=== PATIENT | male | born 1960 | race Caucasian/White ===

== ENCOUNTER 2024-11-08 06:10 | Emergency (ER) | payer OTHER ==
[~2024-11-08] VITALS: Ht 175.3 cm; Wt 102.1 kg
--- NOTE | 2024-11-08 06:44 | ERN ---
General Chief Complaint: Neck Pain Stated Complaint: NECK PAIN Time Seen by MD: 06:15 Source: patient History of Present Illness Initial Comments Patient is a 64-year-old male with known this disease in his neck. He states that he has already had C6-7 fusion and that he needs additional surgeries on his neck. He woke up this morning in excruciating neck pain worse than it has ever been before. He is sitting up ramrod straight in the bed afraid to move his neck because of the pain. He is complaining of bilateral arm pain as well. Allergies: Coded Allergies: Penicillins (Unverified Allergy, Unknown, 11/08/24) ketorolac (Unverified Allergy, Unknown, 11/08/24) tramadol (Unverified Allergy, Unknown, 11/08/24) Past Medical History Past Medical History: CHF, COPD, Diabetes-Type II Past Surgical History: None Surgical History Other: neck fusuion c6-c7. Constitutional: (-) chills, (-) diaphoresis, (-) fever, (-) malaise, (-) weakness, (-) other documentation EENTM: (-) eye pain, (-) blurred vision, (-) tearing, (-) double vision, (-) ear pain, (-) ear discharge, (-) nose pain, (-) nose congestion, (-) throat pain, (-) Throat swelling, (-) mouth pain, (-) tooth pain, (-) mouth swelling, (-) other documentation Respiratory: (-) cough, (-) orthopnea, (-) short of breath, (-) stridor, (-) wheezing, (-) other documentation Cardiovascular: (-) chest pain, (-) edema, (-) palpitations, (-) syncope, (-) dyspnea on exertion, (-) other documentation Gastrointestinal/Abdominal: (-) nausea, (-) vomiting, (-) diarrhea, (-) abdominal pain, (-) abdominal distention, (-) constipation, (-) rectal bleeding, (-) dark stool/melena, (-) other documentation Musculoskeletal: (+) Neck pain, (+) muscle stiffness Skin: (-) laceration, (-) contusion, (-) abrasion, (-) abscess, (-) rash, (-) change in color, (-) change in hair, (-) change in nails, (-) diaphoresis, (-) dryness, (-) other documentation Neuro: (-) altered mental status, (-) headache, (-) syncope, (-) paralysis, (-) numbness, (-) seizure, (-) pre-existing deficit, (-) tremors, (-) weakness, (-) dizziness, (-) slurred speech, (-) vertigo, (-) other documentation Physical Exam General Appearance: (+) moderate distress Orientation: (+) oriented x 3 Head/Face Trauma: No Eye: bilateral eye normal inspection, bilateral eye PERRL, bilateral eye EOMI Ear, Nose, Throat: (+) hearing grossly normal, (+) normal ENT inspection, (+) moist mucous membraine Neck: (+) normal inspection Neck Comment Patient is holding his neck straight up and unwilling to bend it at all. He has minimal C-spine tenderness but he has a extreme paraspinal muscle tenderness. Respiratory: (+) chest non-tender, (+) lungs clear, (+) well ventilated Results Laboratory and Microbiology Labs Reviewed?: Yes EKG/XRAY/US/CT/MRI X-RAY Comment [place] [id number] [address] IMAGING REPORT Signed PATIENT: GURU NIX MR#: [id number] : 1960 SEX: M AGE: 64 LOCATION: ED ORDER 0 STATUS: REG ER REPORT#: [id number] SERVICE [id number] REASON: neckpain ORDERING PHYSICIAN: DALILA OLIVARES MD PROCEDURE: CERV 2 3VW - CERV SPINE 2-3VWS Exam Type: CERV SPINE 2-3VWS Clinical Information: neckpain Comparison: None FINDINGS: C1 through the top of T1 are seen on the lateral view. The prevertebral soft tissues are normal. No fractures or dislocations are seen. There are spondylytic changes and there are degenerative changes of the facet joints. Status post anterior fusion C5-6 with adequate alignment. The other disc spaces are intact. There is adequate alignment. IMPRESSION: Degenerative changes as noted. DICTATED BY: BOB CADET MD DATE: 11/08/24909 ELECTRONICALLY SIGNED BY: BOB CADET MD DATE: 11/08/24912 [facility] For starters I will give the patient some pain medicine and some muscle relaxants and also a soft C-collar. I need the patient's pain to be better controlled before I can even begin to do any imaging or a meaningful exam. PATIENT STATES HE HAS BEEN HAVING NECK PAIN FOR SOME TIME. X-RAY DID NOT DISCLOSE ACUTE FINDINGS. PATIENT WILL BE DISCHARGED IN STABLE CONDITION I DID ADVISED HIM APPROPRIATE FOLLOW UP WITH WITH PCP AND/OR ORTHOPEDIC AND NEUROSURGEON. PATIENT IS PENDING SURGERY MOMENT OF DISCHARGE PATIENT DOES NOT REPORT NEUROPATHY OR ANY OTHER NERVE DAMAGE. ED Course Orders Procedure Category Date Status Time Cyclobenzaprine Hcl PHA 11/08/24 Complete (Cyclobenzaprine Hcl 07:00 Hydromorphone 2mg PHA 11/08/24 Complete Vial (Dilaudid 2mg Inj 07:00 *Nursing CPOE 11/08/24 Transmitted Communication: 06:46 Orphenadrine Citrate PHA 11/08/24 Complete (Norflex) 07:30 Triamcinolone Acet PHA 11/08/24 Complete 40mg/Ml 1ml (Kenalog 07:30 Cerv Spine 2-3vws RAD 11/08/24 Resulted 07:50 Current Medications Medications (Trade) Dose Ordered Sig/Ramez Route PRN Reason Start Time Stop Time Status Last Admin Dose Admin Cyclobenzaprine HCl (Cyclobenzaprine HCl) 10 mg ONCE ONCE PO 11/08/24 07:00 11/08/24 07:15 DC Hydromorphone HCl (DiLAUDid 2MG INJ) 2 mg ONCE ONCE IVP 11/08/24 07:00 11/08/24 07:15 DC Orphenadrine Citrate (Norflex) 60 mg ONCE ONCE IM 11/08/24 07:30 11/08/24 07:31 DC 11/08/24 07:25 Triamcinolone Acetonide (Kenalog 40) 40 mg ONCE ONCE IM 11/08/24 07:30 11/08/24 07:31 DC 11/08/24 07:25 Vital Signs Date Time Temp Pulse Resp B/P (MAP) Pulse Ox O2 Delivery O2 Flow Rate FiO2 11/08/24 07:34 97.5 84 22 116/68 98 Room Air* 0 21 11/08/24 06:15 98.1 87 16 157/79 99 Room Air 0 DX & DISP Disposition: Discharge Departure Impression: Primary Impression: Chronic neck pain Condition: Stable Scripts Methocarbamol (Robaxin) 750 Mg Tab 1 TAB PO BID for 5 Days, #10 TAB 0 Refills Prov: DALILA OLIVARES MD 11/08/24 Additional Instructions: FOLLOW-UP WITH PRIMARY CARE PROVIDER IN 1 TO 2 DAYS. TAKE MEDICATIONS DIRECTED HERE IN THE EMERGENCY ROOM. OKAY TO CONTINUE HOME MEDICATIONS UNLESS OTHERWISE DISCUSSED DURING YOUR VISIT IN THE EMERGENCY ROOM TODAY. RETURN TO YOUR NEAREST EMERGENCY ROOM IF SYMPTOMS WORSEN OR IF THERE IS NO IMPROVEMENT. CALL 911 IF YOU NEED IMMEDIATE ASSISTANCE. TAKE TYLENOL [id number] NEEDED AND IF NO CONTRAINDICATIONS ARE PRESENT. INCREASE ORAL HYDRATION. A WOUND CULTURE OR URINE CULTURE WAS ORDERED HERE IN THE EMERGENCY ROOM DEPARTMENT PLEASE FOLLOW-UP WITH PRIMARY CARE PROVIDER AND ADVISE THEM TO GET REPEAT PORTS FROM OUR FACILITY. IF YOU HAD ANY LEENA WRAP/SPLINTS THAT WERE APPLIED HERE, PLEASE DO NOT REMOVE THEM UNTIL YOU SEE YOUR PRIMARY CARE OR SPECIALTY. REFERRALS: Referrals: SELF,REFERRAL (PCP) LESLEE CARTAGENA MD Time of Disposition: 09:46 DAGOBERTO QUIÑONES MD November 08, 2024 06:44 DALILA OLIVARES MD November 08, 2024 09:48
[2024-11-08] MEDS ORDERED: hydroMORPHone 2 MG VIAL (2MG/ML) IVP ONE (07:00)
[2024-11-08] MEDS ORDERED: CYCLOBENZAPRINE HCL 10 MG TABLET PO ONE (07:00)
--- NOTE | 2024-11-08 07:08 | NUR ---
SOFT COLLAR PLACED.
[2024-11-08] MEDS: ORPHENADRINE 60MG/2ML IM ONE (07:25)
[2024-11-08] MEDS: TRIAMCINOLONE ACETONIDE 40 MG/ML 1ML VIAL IM ONE (07:25)
--- NOTE | 2024-11-08 09:13 | HMCIMG ---
Exam Type: CERV SPINE 2-3VWS Clinical Information: neckpain Comparison: None FINDINGS: C1 through the top of T1 are seen on the lateral view. The prevertebral soft tissues are normal. No fractures or dislocations are seen. There are spondylytic changes and there are degenerative changes of the facet joints. Status post anterior fusion C5-6 with adequate alignment. The other disc spaces are intact. There is adequate alignment. IMPRESSION: Degenerative changes as noted.
[2024-11-08] MEDS ORDERED: METH-662 PO (09:47)
[2024-11-08 09:54] VITALS: BP 119/73; PULSE 88; RESP 18; TEMP 98; O2SAT 95
--- NOTE | 2024-11-08 10:05 | NUR ---
PT AMBULATING WITHOUT ASSISTANCE, SOFT COLLAR IN PLACE, NAD.
== END 2024-11-08 10:06 | disposition home or self-care (01) ==
LOC: EDH 06:10
DX: G89.29 Other chronic pain (principal); M54.2 Cervicalgia; E11.9 Type 2 diabetes mellitus without complications; I50.9 Heart failure, unspecified; J44.9 Chronic obstructive pulmonary disease, unspecified; Z88.0 Allergy status to penicillin; Z88.5 Allergy status to narcotic agent
CPT/HCPCS: 99284; 72040; 96372 ×2; J3301; J2360

== ENCOUNTER 2024-12-25 03:53 | Emergency (ER) | payer OTHER ==
[~2024-12-25] VITALS: Ht 177.8 cm; Wt 99.8 kg
[~2024-12-25 03:53] MED LIST: ADV250 IH; AEC81 PO; ATOR40TA69 PO; AZIT500T4 PO; EMPA10TA PO; FURO40TA5 PO; GABA-1555 PO; GUAI600T50 PO; LOSA-417 PO; NITR0.4T50 SL; NYST15PO13 TP; TICA90TA PO
[2024-12-25 03:54] VITALS: BP 106/60; PULSE 99; RESP 18
[2024-12-25] MEDS ORDERED: ketOROlac 15MG/ML VIAL (15MG/ML) IV ONE (04:00)
[2024-12-25] MEDS: LACTATED RINGERS 1000ML 1,000 ML IV ONE (05:09)
[2024-12-25] MEDS: morPHINE 4 MG SYG IVP ONE (05:09)
[2024-12-25 05:10] LABS: BASOPHILS # (AUTO) 0.03 K/uL (0.00-0.20); BASOPHILS % (AUTO) 0.5 % (0.0-5.0); EOSINOPHILS # (AUTO) 0.08 K/uL (0.00-0.70); EOSINOPHILS % (AUTO) 1.4 % (0.0-8.0); HEMATOCRIT 46.4 % (42-54); IMMATURE GRANULOCYTE ABSOLUTE 0.01 K/uL (0-1); LYMPHOCYTES # (AUTO) 1.3 K/uL (1.0-4.8); LYMPHOCYTES % (AUTO) 22.7 % (21.0-51.0); MEAN CORPUSCULAR HGB CONC 32.1 g/dL (32.0-36.0); MEAN CORPUSCULAR VOLUME 96.5 fL (79-99); MONOCYTES # (AUTO) 0.5 K/uL (0.1-1.0); MONOCYTES % (AUTO) 9.6 % (3.0-13.0); NEUTROPHILS # (AUTO) 3.7 K/uL (1.8-7.7); NEUTROPHILS % (AUTO) 65.6 % (40.0-77.0); PLATELET COUNT (AUTO) 218 K/uL (130-400); RED BLOOD CELL COUNT(AUTO) 4.81 MIL/uL (4.50-6.20); RED CELL DISTRIBUTION WIDTH 15.2 % (11.0-15.5); WHITE BLOOD COUNT (AUTO) 5.7 K/uL (4.8-10.8)
[2024-12-25 05:19] LABS: CARBON DIOXIDE 37 mmol/L (21-32); CHLORIDE 102 mmol/L (101-111); CREATININE 0.9 mg/dL (0.5-1.3); GLOMERULAR FILTR. RATE CALC 96 mL/min (>90); GLUCOSE,RANDOM 152 mg/dL (70-105); POTASSIUM 3.8 mmol/L (3.5-5.1); SODIUM SERUM 142 mmol/L (136-145); UREA NITROGEN, BLOOD 8 mg/dL (7-18)
[2024-12-25 05:26] LABS: ALCOHOL, BLOOD < 3 mg/dL (0-10); CREATINE KINASE, TOTAL 38 U/L (21-232)
[2024-12-25 06:05] LABS: ADD UA MICROSCOPIC NO
[2024-12-25 06:06] LABS: APPEARANCE,URINE CLEAR (CLEAR); BILIRUBIN,URINE NEGATIVE (NEGATIVE); COLOR,URINE LIGHT-YELLOW (YELLOW); GLUCOSE, URINE (UA) >=1000 mg/dL (NEGATIVE); KETONES,URINE NEGATIVE (NEGATIVE); NITRATE,URINE NEGATIVE (NEGATIVE); OCCULT BLOOD,URINE NEGATIVE (NEGATIVE); PH,URINE 5.5 (5.0-8.0); PROTEIN,URINE NEGATIVE (NEGATIVE); UROBILINOGEN,URINE 0.2 mg/dL (0.2-1.0)
[2024-12-25 06:07] LABS: LEUKOCYTE ESTERASE ,URINE NEGATIVE Leu/uL (NEGATIVE)
[2024-12-25] MEDS ORDERED: MELO-108 PO (06:52)
--- NOTE | 2024-12-25 06:53 | ERN ---
General Chief Complaint: Mechanical Fall Stated Complaint: FALL Time Seen by MD: 03:58 History of Present Illness Initial Comments 64-year-old male brought in by EMS for a fall. Patient reports he was getting up to use the restroom in the middle of the night, he felt dizzy, and he had a fall. He fell to his left side. He had his head on the wall. He complains of left shoulder pain left knee pain. He is ambulatory with stable vital signs per EMS. GCS 15. He does report taking Brilinta. Allergies: Coded Allergies: Penicillins (Unverified Allergy, Unknown, 11/08/24) ketorolac (Unverified Allergy, Unknown, 11/08/24) tramadol (Unverified Allergy, Unknown, 11/08/24) Home Meds Active Scripts Nystatin (Nystatin) 100,000 Unit/Gram Powder, 1 APPL TP BID for 7 Days, #60 GM 2 Refills apply to affected area(s) Prov:JASON LAURENT MD 11/21/24 Guaifenesin (Mucinex) 600 Mg Tablet.er, 1 TAB PO BID for cough for 10 Days, #20 TAB 1 Refill Prov:JASON LAURENT MD 11/21/24 Azithromycin (Azithromycin) 500 Mg Tablet, 1 TAB PO DAILY for 5 Days, #5 TAB 0 Refills Prov:JASON LAURENT MD 11/21/24 Fluticasone/Salmeterol (ADVAIR 250-50 DISKUS) 14 Inh/Disk Inh, 1 PUFF IH BID for 30 Days, #1 EACH 1 Refill Prov:JASON LAURENT MD 11/21/24 Nitroglycerin (Nitroglycerin) 0.4 Mg Tab.subl, 1 TAB SL AD for chest pain, #25 TAB 1 Refill 1st sign of attack; may repeat every 5 mins; if pain persists after 3 in 15 min, medical attention is recommended Prov:JASON LAURENT MD 11/21/24 Ticagrelor (Brilinta) 90 Mg Tablet, 90 MG PO BID for 30 Days, #30 TAB 1 Refill Prov:JASON LAURENT MD 11/21/24 Losartan Potassium (Cozaar) 25 Mg Tablet, 25 MG PO DAILY for 30 Days, #30 TAB 1 Refill Prov:JASON LAURENT MD 11/21/24 Atorvastatin Calcium (LIPITOR) 40 Mg Tablet, 40 MG PO HS for 30 Days, #30 TAB 1 Refill Prov:JASON LAURENT MD 11/21/24 Aspirin (ASPIRIN 81 MG ECTAB) 81 Mg Ectab, 81 MG PO DAILY for 30 Days, #30 TAB.EC 1 Refill Prov:JASON LAURENT MD 11/21/24 Reported Medications Empagliflozin (Jardiance) 10 Mg Tablet, 1 TAB PO DAILY for 30 Days, #30 TAB 0 Refills 11/19/24 Gabapentin (Gabapentin) 800 Mg Tablet, 1 TAB PO BID for 30 Days, #90 TAB 0 Ref ills 11/19/24 Atorvastatin Calcium (LIPITOR) 40 Mg Tablet, 1 TAB PO DAILY for 30 Days, #30 TAB 0 Refills 11/19/24 Furosemide (Furosemide) 40 Mg Tablet, 1 TAB PO BID for 30 Days, #30 TAB 0 Refills 11/19/24 Past Medical History Past Medical History: CHF, COPD, Diabetes-Type II Past Surgical History: None Surgical History Other: neck fusuion c6-c7. ROS Dictation CONSTITUTIONAL: No chills, no fever, no weakness, no diaphoresis, no malaise. HEAD/FACE: No signs of trauma. EENT: No eye pain, no blurred vision, no tearing, no double vision, no ear pain, no ear discharge, no nose pain, no nasal congestion, no throat pain, no throat swelling, no mouth pain. RESPIRATORY: No cough, no orthopnea, no SOB, no stridor, no wheezing. CARDIOVASCULAR: No chest pain, no edema, no palpitations, no syncope. GASTROINTESTINAL/ABDOMINAL: No abdominal pain, no constipation, no diarrhea, no nausea, no vomiting. GENITOURINARY: No abnormal discharge, no dysuria, no frequent urination, no hematuria. No complaints of pain in the genitals. MUSCULOSKELETAL: Headache, left shoulder pain, left knee pain INTEGUMENTARY: No change in color, no change in hair/nails, no dryness, no lesion, no lumps, no rash. NEUROLOGICAL/PSYCH: No anxiety, not depressed, no emotional problem, no headache, no numbness, no pre-existing deficit, no history of seizures, no tremors, no weakness. HEMATOLOGIC/LYMPHATIC: Not anemic, no history of blood clots, no apparent bleeding, no bruising, glands not swollen. All Systems Negative, Except as Noted. Physical Exam Physical Exam Dictation VITAL SIGNS: Reviewed. GENERAL APPEARANCE: Alert, oriented x3, no acute distress HEAD AND FACE: Non-traumatic. EYES: PERRL, pink conjunctivas, eyelid no trauma, anterior chamber clear. EARS: Pinnas intact and no signs of trauma or erythema. Ear canals clear and no discharge. TMs no erythema. NOSE: No discharge, no bleeding. OROPHARYNX: Mouth normal, teeth no caries, tongue pink. Pharynx clear, no erythema. Tonsils no exudates, no abscesses noted. Mucous membrane moist. NECK: Supple, non-tender, no thyromegaly, no masses, no JVD, no bruits. BREAST: Deferred. CHEST: No tenderness, no crepitus, no paradoxical movement, no retractions. LUNGS: Clear, well-ventilated, symmetric, no rales, no wheezing, no rhonchi, no stridor, good breath sounds bilaterally. HEART: Regular rate, regular rhythm, no murmur, no gallops. VASCULAR: No peripheral edema. ABDOMEN: Soft, positive bowel sounds, nondistended, no guarding, nontender, no rebound, no masses no hepatomegaly, no splenomegaly, no Costa's sign, no hernias. RECTAL: Deferred. GENITAL: Deferred. NEUROLOGICAL: Normal speech, gross motor function intact, gross sensory function intact. MUSCULOSKELETAL: Neck nontender, full range of motion, back nontender, full range of motion. EXTREMITIES: Nontender, full range of motion. SKIN: Color pink, dry, no turgor, no rash, no lacerations, no abrasions, no contusions. LYMPHATICS: Deferred. Results Laboratory and Microbiology Lab and Micro Result Laboratory Tests Test 12/25/24 05:02 12/25/24 05:33 White Blood Count 5.7 K/uL (4.8-10.8) Red Blood Count 4.81 MIL/uL (4.50-6.20) Hemoglobin 14.9 g/dL (14.0-18.0) Hematocrit 46.4 % (42-54) Mean Corpuscular Volume 96.5 fL (79-99) Mean Corpuscular Hemoglobin 31.0 pg (27.0-33.0) Mean Corpuscular Hemoglobin Concent 32.1 g/dL (32.0-36.0) Red Cell Distribution Width 15.2 % (11.0-15.5) Platelet Count 218 K/uL (130-400) Mean Platelet Volume 9.1 fL (7.5-10.5) Immature Granulocyte % (Auto) 0.2 % (0-1) Neutrophils (%) (Auto) 65.6 % (40.0-77.0) Lymphocytes (%) (Auto) 22.7 % (21.0-51.0) Monocytes (%) (Auto) 9.6 % (3.0-13.0) Eosinophils (%) (Auto) 1.4 % (0.0-8.0) Basophils (%) (Auto) 0.5 % (0.0-5.0) Neutrophils # (Auto) 3.7 K/uL (1.8-7.7) Lymphocytes # (Auto) 1.3 K/uL (1.0-4.8) Monocytes # (Auto) 0.5 K/uL (0.1-1.0) Eosinophils # (Auto) 0.08 K/uL (0.00-0.70) Basophils # (Auto) 0.03 K/uL (0.00-0.20) Absolute Immature Granulocyte (auto 0.01 K/uL (0-1) Nucleated Red Blood Cells 0.0 % (0.0-0.19) Sodium Level 142 mmol/L (136-145) Potassium Level 3.8 mmol/L (3.5-5.1) Chloride Level 102 mmol/L (101-111) Carbon Dioxide Level 37 mmol/L (21-32) H Blood Urea Nitrogen 8 mg/dL (7-18) Creatinine 0.9 mg/dL (0.5-1.3) Glomerular Filtration Rate Calc 96 mL/min (>90) Random Glucose 152 mg/dL (70-105) H Total Calcium 8.6 mg/dL (8.5-10.1) Magnesium Level 2.20 mg/dL (1.80-2.40) Total Creatine Kinase 38 U/L (21-232) Troponin I High Sensitivity 59.9 ng/L (4-75) Serum Alcohol < 3 mg/dL (0-10) Urine Color LIGHT-YELLOW (YELLOW) Urine Appearance CLEAR (CLEAR) Urine pH 5.5 (5.0-8.0) Urine Specific [place] 1.011 (1.001-1.031) Urine Protein NEGATIVE mg/dL (NEGATIVE) Urine Glucose (UA) >=1000 mg/dL (NEGATIVE) H Urine Ketones NEGATIVE mg/dL (NEGATIVE) Urine Occult Blood NEGATIVE (NEGATIVE) Urine Nitrate NEGATIVE (NEGATIVE) Urine Bilirubin NEGATIVE mg/dL (NEGATIVE) Urine Urobilinogen 0.2 mg/dL (0.2-1.0) Urine Leukocyte Esterase NEGATIVE Robin/uL MDM CC: Dizziness, fall Historian: Patient Comorbidities: CHF, COPD, diabetes type 2, neck surgery in the past, anticoagulated Limitations by social determinants of health: No local physician Differential diagnosis: Head injury or trauma, syncope, arrhythmia, other. Vital signs: Stable. Blood pressure 106/60, pulse 99, respiratory rate of 18, oxygen saturation 92% on room air. The patient had a traumatic injury, he is on Brilinta. Trauma level two. ABC's intact on initial evaluation. Stable vital signs. Taken to the CT scanner CT head without contrast (independently interpreted by me): No acute bleeding they fractures CT C-spine without contrast (independently interpreted by me): No acute any fractures. Degenerative changes and postoperative changes noted. CXR (independently interpreted by me): Borderline cardiomegaly no pleural effusions focal infiltrates. Mild increased vascular congestion. No pneumothorax or signs of trauma. Left shoulder x-ray (independently interpreted by me): No acute fractures Pelvis x-ray (independently interpreted by me): No acute fractures Left knee x-ray (independently interpreted by me): No acute fractures or abnormalities Labs (independently ordered and interpreted by me): No leukocytosis no anemia. Chemistry panel shows an elevated carbon dioxide consistent with chronic hypercapnia, CK troponin are stable. Urinalysis shows glucose otherwise negative. Alcohol level negative. Treatment in ED: 1 L lactated Ringer's, IV Toradol, IV morphine for pain control Re-evaluation: Patient is stable. No significant injuries after the trauma. Plan: We will DC with [id number] pain control recommend PCP follow up. ED Course Orders Procedure Category Date Status Time Lactated Ringers PHA 12/25/24 Complete 1000ml (Lactated 04:00 Alcohol, Blood LAB 12/25/24 Complete 03:58 Cardiac Panel LAB 12/25/24 Complete 03:58 Cbc With Differential LAB 12/25/24 Complete 03:58 Basic Metabolic Panel LAB 12/25/24 Complete 03:58 Magnesium LAB 12/25/24 Complete 03:58 Urinalysis Profile LAB 12/25/24 Complete 03:58 Ct Head/Brain W/O CT 12/25/24 Taken Contrast 03:58 Ct Cervical Spine W/O CT 12/25/24 Taken Contrast 03:58 Chest 1vw RAD 12/25/24 Taken 03:58 Shoulder Comp 2+Vws Lt RAD 12/25/24 Taken 03:58 Knee 3vws Lt RAD 12/25/24 Taken 03:58 Pelvis 1-2vws RAD 12/25/24 Taken 03:58 Ketorolac PHA 12/25/24 Complete Tromethamine 15mg/Ml 04:00 Morphine 4mg Syg PHA 12/25/24 Complete (Morphine 4mg Syg) 04:00 12 Lead Ekg Tracing- EKG 12/25/24 Logged Technical 06:44 Current Medications Medications (Trade) Dose Ordered Sig/Ramez Route PRN Reason Start Time Stop Time Status Last Admin Dose Admin Ketorolac Tromethamine (toRADol) 15 mg ONCE ONCE IV 12/25/24 04:00 12/25/24 05:11 DC Lactated Ringer's 1,000 ml @ 0 mls/hr ONCE ONCE IV 12/25/24 04:00 12/25/24 04:03 DC 12/25/24 05:09 Morphine Sulfate (morPHINE 4MG SYG) 4 mg ONCE ONCE IVP 12/25/24 04:00 12/25/24 04:03 DC 12/25/24 05:09 Vital Signs Date Time Temp Pulse Resp B/P (MAP) Pulse Ox O2 Delivery O2 Flow Rate FiO2 12/25/24 03:54 99 18 106/60 93 Room Air 0 DX & DISP Disposition: Discharge Departure Impression: Primary Impression: Minor head injury Additional Impressions: Neck injury, Dizziness Condition: Stable Scripts Meloxicam (Meloxicam) 15 Mg Tablet 15 MG PO DAILY PRN for PAIN for 10 Days, #10 TAB Prov: AUSTEN GALLO DO 12/25/24 Additional Instructions: You had no fractures or major injuries today. Your symptoms are consistent with soft tissue injury. The CT scan of your head and cervical spine are unremarkable. The hardware in your cervical spine is intact. The x-rays of your chest, arm, knee are unremarkable. Your lab work (CBC, metabolic panel, your urinalysis, CK, troponin) is unremarkable. I have prescribed meloxicam for pain. Use as needed. Follow up with the primary doctor if you continue with symptoms for longer than a week. Please return to the emergency department as needed. Referrals: SELF,REFERRAL (PCP) AUSTEN GALLO DO Dec 25, 2024 06:53
--- NOTE | 2024-12-25 07:37 | EKG ---
[facility] Test Date: 2024-12-25 Test Time: 07:07:23 Pat Name: GURU AGUAYO Department: ED Room: Gender: M Rate Reviewer: [id number] : 1960 Requested By: AUSTEN GALLO Order Number: [id number] Reading MD: Gold Lopes Measurements Intervals [place] Rate: 81 P: 55 WV: 189 QRS: 166 QRSD: 102 T: 84 QT: 379 QTc: 441 Interpretive Statements Sinus rhythm Probable left atrial enlargement Inferior infarct, old Anterior infarct, old Nonspecific STT abnormality Compared to ECG 11/18/2024 17:15:02 No significant changes Electronically Signed On 12-25-2024 18:13:27 CDT by Gold Lopes Please click the below link to view image of tracing.
--- NOTE | 2024-12-25 12:55 | HMCIMG ---
CT HEAD/BRAIN W/O CONTRAST HISTORY: Status post fall COMPARISON: None TECHNIQUE: Multiple sequential axial images of the head were obtained from the base of the skull through vertex. Patient was not given contrast through intravenous route. FINDINGS: The ventricles and extraventricular CSF spaces are dilated consistent with cerebral atrophy. Nonspecific white matter changes seen. There is no midline shift, mass effect or herniation. No acute intracranial bleed is seen. Visualized portion of the paranasal sinuses are grossly within normal limits. IMPRESSION: 1. No acute intracranial bleed is seen. 2. Atrophy with white matter changes. CT was performed with one or more following dose reduction techniques: automated exposure control, adjustment of the mA and kv according to patient's size, or use of a iterative reconstruction technique.
--- NOTE | 2024-12-25 12:56 | HMCIMG ---
CT CERVICAL SPINE W/O CONTRAST HISTORY: Status post fall COMPARISON: None TECHNIQUE: Multiple sequential axial images of the cervical spine were obtained including post processing sagittal and coronal reconstruction images. Patient was not given contrast through intravenous route. FINDINGS: There are degenerative changes with cervical spine spondylosis. Anterior subluxation is seen of C3 over C4. Orthopedic fixation plates and screws are seen traversing the C5 and C6 with disc fusion. There is straightening of normal lordotic cervical curvature which may be related to muscle spasm or positioning. There is no loss of vertebral height. Evaluation for disc and cord pathology is limited with CT study. No evidence of fracture or dislocation is seen. IMPRESSION: 1. No fracture is seen. DJD with cervical spine spondylosis with postop changes. CT was performed with one or more following dose reduction techniques: automated exposure control, adjustment of the mA and kv according to patient's size, or use of a iterative reconstruction technique.
--- NOTE | 2024-12-25 16:14 | HMCIMG ---
PELVIS 1-2VWS HISTORY: Status post fall COMPARISON: None TECHNIQUE: Frontal projection of the pelvis was obtained. FINDINGS: There is no acute displaced fracture or dislocation. Bilateral hip joint space narrowing is seen. Degenerative changes are seen. IMPRESSION: 1. Findings as described above.
--- NOTE | 2024-12-25 16:14 | HMCIMG ---
KNEE 3VWS LT HISTORY: Status post fall COMPARISON: None TECHNIQUE: 3 images of the left knee were obtained. FINDINGS: There is no acute displaced fracture or dislocation. Degenerative changes are seen. IMPRESSION: 1. Findings as described above.
--- NOTE | 2024-12-25 16:14 | HMCIMG ---
SHOULDER COMP 2+VWS LT HISTORY: Status post fall COMPARISON: None TECHNIQUE: 2 images of left shoulder were obtained. FINDINGS: There is no acute displaced fracture or dislocation. Degenerative changes are seen. IMPRESSION: 1. Findings as described above.
--- NOTE | 2024-12-25 16:15 | HMCIMG ---
CHEST 1VW HISTORY: Status post fall COMPARISON: None FINDINGS: A frontal projection of the chest was obtained. No acute pulmonary infiltrates is seen. The heart is enlarged. Prominent interstitial markings are seen. Mild degenerative changes are seen. No evidence of aortic calcification is seen. IMPRESSION: 1. No acute pulmonary infiltrate is seen.
== END 2024-12-25 07:10 | disposition home or self-care (01) ==
LOC: EDH 03:53
DX: S09.90XA Unspecified injury of head, initial encounter (principal); S19.9XXA Unspecified injury of neck, initial encounter; R42 Dizziness and giddiness; E11.9 Type 2 diabetes mellitus without complications; I50.9 Heart failure, unspecified; J44.9 Chronic obstructive pulmonary disease, unspecified; Z79.02 Long term (current) use of antithrombotics/antiplatelets; Z79.51 Long term (current) use of inhaled steroids; Z79.82 Long term (current) use of aspirin; Z79.84 Long term (current) use of oral hypoglycemic drugs; Z79.899 Other long term (current) drug therapy; Z88.0 Allergy status to penicillin; Z88.5 Allergy status to narcotic agent; W18.39XA Other fall on same level, initial encounter; Y93.89 Activity, other specified; Y92.89 Other specified places as the place of occurrence of the external cause; Y99.8 Other external cause status
CPT/HCPCS: 99285; 70450; 96374; 96361; 71045; 82550; 83735; 84484; 80048; 85025; 81003; 36415; 73562; 72170; 73030; 72125; 93005; J7120; J2270; G0390

== ENCOUNTER 2025-03-01 11:20 | Emergency (ER) | payer OTHER ==
[~2025-03-01] VITALS: Ht 167.6 cm; Wt 97.1 kg
[~2025-03-01 11:20] MED LIST changes: +MELO-108 PO
--- NOTE | 2025-03-01 11:34 | ERN ---
ED Note History of Present Illness Stated Complaint: DIFFICULTY BREATHING Chief Complaint: Shortness of Breath Time Seen by MD: 11:28 Dictation: PATIENT IS A 64-YEAR-OLD MALE COMING IN VIA EMS COMPLAINING OF STATE I THINK MY PANCREAS TIGHTNESS HAS HAPPENED UP IN HIS RUBBING HIS ABDOMEN WITH HIS LEFT UPPER QUADRANT. I HAVE CHRONIC PANCREATITIS AND I JUST MOVED HERE FROM [place] HAD IT TWICE WHEN I WAS THERE. NO SOB NO CHEST PAIN NO BACK PAIN. HE ALSO STATES HE HAS HAD DIARRHEA FOR A WEEK. NO LOCAL PRIMARY CARE DOCTOR. Allergies: Coded Allergies: Penicillins (Unverified Allergy, Unknown, 11/08/24) ketorolac (Unverified Allergy, Unknown, 11/08/24) tramadol (Unverified Allergy, Unknown, 11/08/24) Home Meds Active Scripts Meloxicam (Meloxicam) 15 Mg Tablet, 15 MG PO DAILY PRN for PAIN for 10 Days, #10 TAB Prov:AUSTEN GALLO DO 12/25/24 Nystatin (Nystatin) 100,000 Unit/Gram Powder, 1 APPL TP BID for 7 Days, #60 GM 2 Refills apply to affected area(s) Prov:JASON LAURENT MD 11/21/24 Guaifenesin (Mucinex) 600 Mg Tablet.er, 1 TAB PO BID for cough for 10 Days, #20 TAB 1 Refill Prov:JASON LAURENT MD 11/21/24 Azithromycin (Azithromycin) 500 Mg Tablet, 1 TAB PO DAILY for 5 Days, #5 TAB 0 Refills Prov:JASON LAURENT MD 11/21/24 Fluticasone/Salmeterol (ADVAIR 250-50 DISKUS) 14 Inh/Disk Inh, 1 PUFF IH BID for 30 Days, #1 EACH 1 Refill Prov:JASON LAURENT MD 11/21/24 Nitroglycerin (Nitroglycerin) 0.4 Mg Tab.subl, 1 TAB SL AD for chest pain, #25 TAB 1 Refill 1st sign of attack; may repeat every 5 mins; if pain persists after 3 in 15 min, medical attention is recommended Prov:JASON LAURENT MD 11/21/24 Ticagrelor (Brilinta) 90 Mg Tablet, 90 MG PO BID for 30 Days, #30 TAB 1 Refill Prov:JASON LAURENT MD 5/21/25 Losartan Potassium (Cozaar) 25 Mg Tablet, 25 MG PO DAILY for 30 Days, #30 TAB 1 Refill Prov:JASON LAURENT MD 11/21/24 Atorvastatin Calcium (LIPITOR) 40 Mg Tablet, 40 MG PO HS for 30 Days, #30 TAB 1 Refill Prov:JASON LAURENT MD 11/21/24 Aspirin (ASPIRIN 81 MG ECTAB) 81 Mg Ectab, 81 MG PO DAILY for 30 Days, #30 TAB.EC 1 Refill Prov:JASON LAURENT MD 11/21/24 Reported Medications Empagliflozin (Jardiance) 10 Mg Tablet, 1 TAB PO DAILY for 30 Days, #30 TAB 0 Refills 11/19/24 Gabapentin (Gabapentin) 800 Mg Tablet, 1 TAB PO BID for 30 Days, #90 TAB 0 Refills 11/19/24 Atorvastatin Calcium (LIPITOR) 40 Mg Tablet, 1 TAB PO DAILY for 30 Days, #30 TAB 0 Refills 11/19/24 Furosemide (Furosemide) 40 Mg Tablet, 1 TAB PO BID for 30 Days, #30 TAB 0 Refills 11/19/24 Past Medical History Past Medical History: CHF, COPD, Diabetes-Type II, Hypertension, [place] Surgical History: None Surgical History Other: neck fusuion c6-c7. Social History: Smokers RN Note Reviewed/Agreed w/PFSH: Yes Review of System Dictation CONSTITUTIONAL: NEGATIVE EXCEPT FOR HPI HEAD/FACE: NEGATIVE EXCEPT FOR HPI EENT: NEGATIVE EXCEPT FOR HPI RESPIRATORY: NEGATIVE EXCEPT FOR HPI SOB GASTROINTESTINAL/ABDOMINAL: NEGATIVE EXCEPT FOR HPI DIFFUSE ABDOMINAL PAIN GREATER ON THE LEFT UPPER GENITOURINARY: NEGATIVE EXCEPT FOR HPI MUSCULOSKELETAL: NEGATIVE EXCEPT FOR HPI INTEGUMENTARY: NEGATIVE EXCEPT FOR HPI NEUROLOGICAL/PSYCH: NEGATIVE EXCEPT FOR HPI HEMATOLOGIC/LYMPHATIC: NEGATIVE EXCEPT FOR HPI ALL SYSTEMS NEGATIVE, EXCEPT NOTED ABOVE. 13 POINT REVIEW OF SYSTEMS ASSESSED AND ALL NEGATIVE EXCEPT FOR ABOVE. Initial Vital Sign VS Vital Signs Date Time Temp Pulse Resp B/P (MAP) Pulse Ox O2 Delivery O2 Flow Rate FiO2 03/01/25 11:22 98.1 90 22 145/80 99 Nonrebreathing Mask 0 03/01/25 11:41 36 Physical Exam Dictation VITAL SIGNS REVIEWED GENERAL APPEARANCE: ALERT, ORIENTED X 3, MODERATE ACUTE DISTRESS, WELL DEVELOPED, NOURISHED. HEAD AND FACE: NON-TRAUMATIC. EYES: PERRL, PINK CONJUNCTIVAS, EYELID NO TRAUMA, ANTERIOR CHAMBER WITH ARCUS SENILIS. EARS: PINNAS INTACT AND NO SIGNS OF TRAUMA OR ERYTHEMA EAR CANALS CLEAR AND NO DISCHARGE TM NO ERYTHEMA NOSE: NO DISCHARGE, NO BLEEDING. OROPHARYNX: MOUTH NORMAL, TONGUE PINK, PHARYNX CLEAR,NO ERYTHEMA, TONSILS NO EXUDATES, NO ABSCESSES NOTED, MUCOUS MEMBRANE MOIST NECK: SUPPLE, NON-TENDER, NO THYROMEGALY, NO MASSES, NO JVD, NO BRUITS BREAST:DEFERRED CHEST:NO TENDERNESS, NO CREPITUS, NO PARADOXICAL MOVEMENT, NO RETRACTIONS LUNGS:CLEAR, WELL-VENTILATED, SYMMETRIC, NO RALES, NO WHEEZING, NO RHONCHI, NO STRIDOR, GOOD BREATH SOUNDS BILATERALLY HEART: REGULAR RATE, REGULAR RHYTHM, NO MURMUR, NO GALLOPS VASCULAR: NO PERIPHERAL EDEMA, ABDOMEN: SOFT, POSITIVE BOWEL SOUNDS, NONDISTENDED, NO GUARDING, MILD DIFFUSE ABDOMINAL PAIN. FOCAL PAIN, NO REBOUND, NO MASSES NO HEPATOMEGALY, NO SPLENOMEGALY, NO HUI'S SIGN, NO HERNIAS. RECTAL: DEFERRED GENITAL: DEFERRED NEUROLOGICAL: NORMAL SPEECH, MOTOR FUNCTION INTACT, SENSORY FUNCTION INTACT MUSCULOSKELETAL: NECK NONTENDER, FULL RANGE OF MOTION, BACK NONTENDER, FULL RANGE OF MOTION, EXTREMITIES: NONTENDER, FULL RANGE OF MOTION SKIN: COLOR PINK, DRY, NO TURGOR, NO RASH, NO LACERATIONS, NO ABRASIONS, NO CONTUSIONS. LYMPHATIC: DEFERRED Results (Laboratory/Radiology) Laboratory/Radiology Laboratory Tests Test 03/01/25 11:34 White Blood Count 7.4 K/uL (4.8-10.8) Red Blood Count 5.57 MIL/uL (4.50-6.20) Hemoglobin 17.9 g/dL (14.0-18.0) Hematocrit 53.1 % (42-54) Mean Corpuscular Volume 95.3 fL (79-99) Mean Corpuscular Hemoglobin 32.1 pg (27.0-33.0) Mean Corpuscular Hemoglobin Concent 33.7 g/dL (32.0-36.0) Red Cell Distribution Width 15.7 % (11.0-15.5) H Platelet Count 234 K/uL (130-400) Mean Platelet Volume 9.5 fL (7.5-10.5) Immature Granulocyte % (Auto) 0.3 % (0-1) Neutrophils (%) (Auto) 64.7 % (40.0-77.0) Lymphocytes (%) (Auto) 26.8 % (21.0-51.0) Monocytes (%) (Auto) 6.9 % (3.0-13.0) Eosinophils (%) (Auto) 0.9 % (0.0-8.0) Basophils (%) (Auto) 0.4 % (0.0-5.0) Neutrophils # (Auto) 4.8 K/uL (1.8-7.7) Lymphocytes # (Auto) 2.0 K/uL (1.0-4.8) Monocytes # (Auto) 0.5 K/uL (0.1-1.0) Eosinophils # (Auto) 0.07 K/uL (0.00-0.70) Basophils # (Auto) 0.03 K/uL (0.00-0.20) Absolute Immature Granulocyte (auto 0.02 K/uL (0-1) Nucleated Red Blood Cells 0.0 % (0.0-0.19) Sodium Level 144 mmol/L (136-145) Potassium Level 4.3 mmol/L (3.5-5.1) Chloride Level 105 mmol/L (101-111) Carbon Dioxide Level 30 mmol/L (21-32) Blood Urea Nitrogen 9 mg/dL (7-18) Creatinine 0.9 mg/dL (0.5-1.3) Glomerular Filtration Rate Calc 96 mL/min (>90) Random Glucose 100 mg/dL (70-105) Total Calcium 9.7 mg/dL (8.5-10.1) Troponin I High Sensitivity 18 ng/L (4-75) Triglycerides Level 72 mg/dL (30-200) Lipase 102 U/L (16-77) H DURE: CXR1VW - CHEST 1VW EXAM: CR Chest, 1 View. CLINICAL HISTORY: SOB COMPARISON: 12/28 10:51 EDT CR - CHEST 1VW FINDINGS: LUNGS: The lungs show no infiltrate or other acute finding. PLEURAL SPACES: No evidence of pleural effusion or pneumothorax. MEDIASTINUM: The cardiomediastinal silhouette is within normal limits. BONES: No aggressive appearing osseous lesion seen. IMPRESSION: No acute cardiopulmonary pathology is evident. /[facility] Labs Reviewed?: Yes EKG Comment: EKG SINUS RHYTHM/HEART RATE 83/LEFT ATRIAL ENLARGEMENT/0 CHANGES ANTERIOR LEADS. ED Course ED Course Orders Procedure Category Date Status Time 12 Lead Ekg Tracing- EKG 03/01/25 Logged Technical 11:27 Triglycerides LAB 03/01/25 Complete 11:31 Cbc With Differential LAB 03/01/25 Complete 11:31 Troponin I High LAB 03/01/25 Complete Sensitivity 11:31 Urinalysis Profile LAB 03/01/25 Logged 11:31 0.9%Nacl 1000ml (Ns PHA 03/01/25 Complete 1000ml) 12:00 Morphine 2mg Syg PHA 03/01/25 Complete (Morphine 2mg Syg) 12:00 Ondansetron 4mg Inj PHA 03/01/25 Complete (Zofran 4mg Inj) 12:00 Lipase LAB 03/01/25 Complete 11:31 Basic Metabolic Panel LAB 03/01/25 Complete 11:31 Chest 1vw RAD 03/01/25 Resulted 11:31 Current Medications Medications (Trade) Dose Ordered Sig/Ramez Route PRN Reason Start Time Stop Time Status Last Admin Dose Admin Morphine Sulfate (morPHINE 2MG SYG) 2 mg ONCE ONCE IVP 03/01/25 12:00 03/01/25 12:01 DC 03/01/25 12:09 Ondansetron HCl (zoFRAN 4MG INJ) 4 mg ONCE ONCE IVP 03/01/25 12:00 03/01/25 12:01 DC 03/01/25 12:03 Sodium Chloride 1,000 ml @ 0 mls/hr ONCE ONCE IV 03/01/25 12:00 03/01/25 12:01 DC 03/01/25 12:03 Vital Signs Date Time Temp Pulse Resp B/P (MAP) Pulse Ox O2 Delivery O2 Flow Rate FiO2 03/01/25 13:20 98.1 78 16 124/67 97 Nasal Cannula* 4 36 03/01/25 11:41 76 16 123/90 97 Nasal Cannula* 4 36 03/01/25 11:22 98.1 90 22 145/80 99 Nonrebreathing Mask 0 1450/PATIENT IS AWARE CARDIAC WORKUP CHEST X-RAY AND LABS ARE ALL NEGATIVE. HE DOES NOT HAVE PANCREATITIS AT THIS TIME. WE WILL BE DISCHARGED HOME WITH CARAFATE AND OMEPRAZOLE TOLD TO SEE HIS PRIMARY CARE DOCTOR FOR MANAGEMENT HEART Score Response (Comments) Value EKG: Repolarization changes 1 Age: 45-65yrs (+1) 1 Risk Factors: 1-2 risk factors (+1) 1 Initial Troponin: Normal limit (0) 0 Total 3 Medical Decision Making MDM MDM: DIFFERENTIAL DIAGNOSIS: ACS/AMI/PANCREATITIS/HYPERTRIGLYCERIDEMIA/ELECTROLYTE IMBALANCE/DEHYDRATION/ANXIETY RATIONALE: TESTS CONSIDERED AND ORDERED SECONDARY TO SHARED DECISION MAKING INCLUDE: EKG/LABS PREVIOUS OUTSIDE RECORDS REVIEWED: OLD ER VISITS. RISK OF COMPLICATION AND/OR MORBIDITY OR MORTALITY OF PATIENT MANAGEMENT: NONE MEDICATIONS-PER MEDICATION RECONCILIATION NEED FOR HOSPITALIZATION: PATIENT DOES NOT MEET CRITERIA FOR HOSPITALIZATION./RADIOLOGY NEED FOR EMERGENCY MAJOR/MINOR SURGERY: NO THERE ARE NO SOCIAL CONCERNS WITH THIS PATIENT. PRESCRIPTION DRUG MANAGEMENT CARAFATE/OMEPRAZOLE PRESCRIPTIONS WILL INCLUDE SYMPTOMATIC CARE PATIENT'S PRIOR EXTERNAL MEDICAL RECORDS FROM OTHER ER VISITS WERE REVIEWED BY ME INDICATED. PRIOR TESTING AND RESULTS FROM PREVIOUS VISITS WERE REVIEWED. PRIOR TESTS WERE TAKEN INTO ACCOUNT WITH MEDICAL DECISION MAKING AND RESOURCE UTILIZATION, INDEPENDENT HISTORIAN/HISTORIANS WERE USED TO OBTAIN COMPLETE MEDICAL HISTORY. I INDEPENDENTLY INTERPRETED THE TEST THAT WERE PERFORMED, RESULTS WERE REVIEWED BY ME AND CONSIDERED FINDINGS ON RADIOLOGY IF ORDERED. MEDICAL MANAGEMENT AND EXAMINATION INTERPRETATION DISCUSSIONS WERE HAD BY ME WITH OTHER QUALIFIED HEALTHCARE PROFESSIONALS INDICATED FOR THE PATIENT'S CARE. DX & DISP Disposition: Discharge Departure Impression: Primary Impression: Abdominal pain Additional Impressions: Elevated lipase, Tobacco abuse Condition: Stable Scripts Omeprazole (Omeprazole) 40 Mg Capsule. 1 CAP PO DAILY for 30 Days, #30 CAP 0 Refills Prov: SAMARA NOVOA NP 03/01/25 Sucralfate (Carafate) 1 Gram Tablet 1 GM PO ACHS for 10 Days, #40 TAB Prov: SAMARA NOVOA AMBULATORY CARE 03/01/25 Additional Instructions: Follow-up with primary care provider in 1 to 2 days. Take medications as directed here in the emergency room. Okay to continue home medications unless otherwise discussed during your visit in the emergency room today. Return to your nearest emergency room if symptoms worsen or if there is no improvement. Call 911 if you need immediate assistance. Take Tylenol or Motrin [id number] as needed and if no contraindications are present. Increase oral hydration. A wound culture or urine culture was ordered here in the emergency room department please follow-up with primary care provider and advise them to get repeat ports from our facility. If you had any Xander wrap/splints that were applied here, please do not remove them until you see your primary care or specialty. Take Carafate and omeprazole as directed until gone. Avoid alcohol, no tobacco no spicy foods no citrus fruit juice, no bubbly drinks, no coffee no soda pop. See your primary care doctor for follow up. Referrals: SELF,REFERRAL (PCP) Time of Disposition: 14:52 I have reviewed the case, and I agree with, Diagnosis and Plan SAMARA NOVOA AMBULATORY CARE Mar 01, 2025 11:34
[2025-03-01 11:58] LABS: IMMATURE GRANULOCYTE ABSOLUTE 0.02 K/uL (0-1); NUCLEATED RED BLOOD CELLS 0.0 % (0.0-0.19); PLATELET COUNT (AUTO) 234 K/uL (130-400); RED BLOOD CELL COUNT(AUTO) 5.57 MIL/uL (4.50-6.20); RED CELL DISTRIBUTION WIDTH 15.7 % (11.0-15.5); WHITE BLOOD COUNT (AUTO) 7.4 K/uL (4.8-10.8)
[2025-03-01] MEDS: 0.9%NACL 1000ML 1,000 ML IV ONE (12:03)
[2025-03-01 12:09] LABS: CREATININE 0.9 mg/dL (0.5-1.3); GLOMERULAR FILTR. RATE CALC 96.0 mL/min (>90); GLUCOSE,RANDOM 100.0 mg/dL (70-105); SODIUM SERUM 144.0 mmol/L (136-145); UREA NITROGEN, BLOOD 9.0 mg/dL (7-18)
--- NOTE | 2025-03-01 12:58 | HMCIMG ---
EXAM: CR Chest, 1 View. CLINICAL HISTORY: SOB COMPARISON: 12/28 10:51 EDT CR - CHEST 1VW FINDINGS: LUNGS: The lungs show no infiltrate or other acute finding. PLEURAL SPACES: No evidence of pleural effusion or pneumothorax. MEDIASTINUM: The cardiomediastinal silhouette is within normal limits. BONES: No aggressive appearing osseous lesion seen. IMPRESSION: No acute cardiopulmonary pathology is evident. /[place]
[2025-03-01] MEDS ORDERED: OMEP40CA21 PO (14:52)
[2025-03-01] MEDS ORDERED: SUCR1TAB28 PO (14:52)
[2025-03-01 15:00] VITALS: BP 121/65; PULSE 72; RESP 16; TEMP 98.1; O2SAT 99
--- NOTE | 2025-03-01 15:14 | NUR ---
PT IS READY FOR DISCHARGE PENDING RIDE. PT IS O2 DEPENDENT
--- NOTE | 2025-03-02 10:24 | EKG ---
[facility] Test Date: 2025-03-01 Test Time: 11:25:00 Pat Name: GURU AGUAYO Department: ED Room: Gender: M Compound Filler: [id number] : 1960 Requested By: ROCKY BARRETT Order Number: [id number] Reading MD: Zoe Zee Measurements Intervals [place] Rate: 83 P: 61 AL: 168 QRS: -22 QRSD: 97 T: 87 QT: 386 QTc: 454 Interpretive Statements Sinus rhythm Probable left atrial enlargement Anterior infarct, old Compared to ECG 12/28/2024 09:49:16 No significant changes Electronically Signed On 03-04-2025 15:06:37 CDT by Zoe Zee Please click the below link to view image of tracing.
== END 2025-03-01 15:30 | disposition home or self-care (01) ==
LOC: EDH 11:20
DX: R74.8 Abnormal levels of other serum enzymes (principal); R10.9 Unspecified abdominal pain; F17.200 Nicotine dependence, unspecified, uncomplicated; E11.9 Type 2 diabetes mellitus without complications; I11.0 Hypertensive heart disease with heart failure; I50.9 Heart failure, unspecified; J44.9 Chronic obstructive pulmonary disease, unspecified; Z79.51 Long term (current) use of inhaled steroids; Z79.82 Long term (current) use of aspirin; Z79.84 Long term (current) use of oral hypoglycemic drugs; Z79.899 Other long term (current) drug therapy; Z88.0 Allergy status to penicillin; Z88.5 Allergy status to narcotic agent
CPT/HCPCS: 99285; 96374; 96361; 71045; 96375; 84478; 84484; 80048; 83690; 85025; 36415; 93005; J2270; J7030; J2405